=== PATIENT | female | born 1970 | race Caucasian/White ===

== ENCOUNTER 2016-08-28 12:11 | Emergency (ER) | payer OTHER ==
[2016-08-28] MEDS ORDERED: ACETAMINOPHEN 325 MG TAB PO ONE (13:02)
[2016-08-28 13:11] VITALS: O2SAT 95
[2016-08-28] MEDS ORDERED: NS 2,000 ML IV ONE (13:25)
[2016-08-28] MEDS ORDERED: IBUPROFEN 200 MG TAB PO ONE (13:25)
--- NOTE | 2016-08-28 13:28 | UCPHY ---
[id number]/09/13 13:17 HPI/ROS: CHIEF COMPLAINT: Cough x1 month HISTORY OF PRESENT ILLNESS: 45-year-old immunocompetent female with no history of chronic pulmonary condition complaining of 1 month of nonproductive cough with development of wheezing in the past 3 days. No chest pain. No dyspnea. No back pain. No peripheral edema. No thromboembolic disorder history. No headache. No nuchal rigidity. No altered mentation. No nausea no vomiting. REVIEW OF SYSTEMS: A ten point review of systems was performed and is negative with the exception of the items mentioned in the HPI PAST MEDICAL & SURGICAL HISTORY: tonsillectomy. Otherwise No pertinent medical or surgical history. Up-to-date with vaccinations including pertussis update. SOCIAL HISTORY:[facility] PHYSICAL EXAM (Prior to examination, patient consented to physical exam, hands were washed and my usual and customary physical exam procedures followed) 1) GENERAL: Well-developed, well-nourished, alert and oriented. Appears to be in no acute distress.Smiling, interactive, appears well 2) HEAD: Normocephalic, atraumatic 3) HEENT: Pupils equal, round, reactive to light bilaterally. Sclera anicteric. Nasopharynx, oropharynx, clear, no lesions. Atonsillar. Ears bilaterally with normal tympanic membranes. 4) NECK: Full range of motion, no meningeal signs. 5) LUNGS: no wheezes, no rhonchi, no retractions. no accessary muscle use 6) HEART: Regular rate and rhythm, no murmur, no heave, no gallop. 7) ABDOMEN: No guarding, no rebound, no focal tenderness, negative McBurney's, negative Berry's, negative Rovsing's, negative peritoneal sign, 8) MUSCULOSKELETAL: Moving all extremities, no focal areas of tenderness, no obvious trauma. No peripheral edema or discoloration. 9) BACK: No CVA tenderness, no midline vertebral tenderness, no fluctuance, no step-off, no obvious trauma, no visual or palpable abnormality. 10) SKIN: No rash, no petechiae. 11) Psychiatric: Patient is oriented X 3, there is no agitation. DIFFERENTIAL DIAGNOSIS: in no particular order including but not limited to pertussis, pneumonia, bronchitis, reactive airways disease (Evan Kim Melody) Constitutional: Initial Vital Signs Temperature (C) 38.4 C H 08/28/16 13:00 Heart Rate 111 H 08/28/16 13:00 Respiratory Rate 20 08/28/16 13:00 Blood Pressure 94/68 L 08/28/16 13:00 O2 Sat (%) 95 08/28/16 13:00 O2 Delivery Mode Room Air Allergies/Adverse Reactions: No Known Allergies Allergy (Unverified 08/28/16 13:06) Home Medications: Medication Instructions Recorded AZITHROMYCIN [Z-PACK] 500 mg PO DAILY #1 packet 08/28/16 Albuterol [Proventil Inhaler HFA 1 - 2 puffs IH Q4PRN PRN #1 mdi 08/28/16 (*)] Naratriptan 08/28/16 Prozac 40 mg 08/28/16 Zofran 08/28/16 MDM/Departure - MDM Diagnostics: Chest, PA upright and lateral views - August 28, 2016, at 1:09 p.m. Clinical History: 45-year-old female with a cough and fever. Comparison Study: None Findings: There is a patchy infiltrate at the medial posterior right lower lobe. The cardiac and mediastinal silhouette is normal in size. There is mild central perihilar bronchial wall thickening. There is no pleural effusion or peripheral interstitial edema. Trace thoracic dextroscoliosis is seen. The osseous structures are otherwise unremarkable. Impression: Mild perihilar bronchitis with early posterior medial right lower lobe infiltrate. Dictated By: Shad Velazquez MD Images reviewed by myself (Evan Kim) Medications Given: Discontinued Medications Acetaminophen (Tylenol) 975 mg PO EDNOW ONE Stop: 08/28/16 13:03 Last Admin: 08/28/16 13:06 Dose: 975 mg Sodium Chloride (Ns) 2,000 mls @ 0 mls/hr IV ONCE ONE PRN Reason: Wide Open Stop: 08/28/16 13:26 Last Admin: 08/28/16 13:34 Dose: Not Given Ibuprofen (Motrin) 800 mg PO EDNOW ONE Stop: 08/28/16 13:26 Last Admin: 08/28/16 13:34 Dose: 800 mg ED Course/Re-evaluation: 1:25 p.m.: Patient is febrile, tachycardic. I recommended ibuprofen, acetaminophen, IV fluids. Patient declines IV fluids. 1:56 p.m.: Re-evaluation. Patient is normotensive, heart rate in the 80s. Do not think this patient is septic. I think she can be treated on outpatient basis. Given prescription for azithromycin, albuterol meter dose inhaler. doubt meningitis. Recommended close follow-up with PCP. Usual customary respiratory precautions instructions provided. (Evan Kim) The patient was evaluated and managed by the physician assistant reading teacher. I have reviewed this chart and I agree with the findings and plan of care as documented , as indicated by my signature. I am the secondary supervising physician. ( Aracelis Sawyer) - Depart Disposition: Home, Routine, Self-Care Clinical Impression: Pneumonia Qualifiers: Pneumonia type: due to unspecified organism Laterality: right Lung location: middle lobe of lung Qualifier Code: (J18.1) Lobar pneumonia, unspecified organism Condition: Good Instructions: Pneumonia (ED) Additional Instructions: Seek immediate medical attention if you develop chest pain, shortness of breath , or any other symptoms that concern you. Prescriptions: Albuterol [Proventil Inhaler HFA (*)] 1 - 2 puffs IH Q4PRN PRN #1 mdi PRN Reason: Cough, Moderate AZITHROMYCIN [Z-PACK] 500 mg PO DAILY #1 packet Referrals: SUE PARMAR [Primary Care Provider] - 1-2 days without fail - PQRS PQRS Measurement: Not applicable (Evan Kim)
[2016-08-28] MEDS ORDERED: IBUPROFEN 600 MG TAB PO ONE (13:30)
--- NOTE | 2016-08-28 13:33 | DX ---
Chest, PA Upright and Lateral Views - August 28, 2016, at 1:09 p.m. Clinical History: 45-year-old female with a cough and fever. Comparison Study: None Findings: There is a patchy infiltrate at the medial posterior right lower lobe. The cardiac and medi astinal silhouette is normal in size. There is mild central perihilar bronchial wall thickening. Ther e is no pleural effusion or peripheral interstitial edema. Trace thoracic dextroscoliosis is seen. Th e osseous structures are otherwise unremarkable. Impression: Mild perihilar bronchitis with an early posterior medial right lower lobe infiltrate. Clinical correlation and followup to assure resolution are recommended.
[2016-08-28 13:50] VITALS: RESP 18
[2016-08-28 14:18] VITALS: BP 106/72; PULSE 79; TEMP 98.4
== END 2016-08-28 14:19 | disposition home or self-care (01) ==
LOC: CED 12:11
DX: J18.1 Lobar pneumonia, unspecified organism (principal)
CPT/HCPCS: 71020-PO; 87400-PO; 99214-PO; G0463-PO